=== PATIENT | female | born 1950 | race Caucasian/White ===

== ENCOUNTER 2021-10-24 08:09 | Outpatient (CLI) | payer MEDICARE, OTHER, SELFPAY ==
[2021-10-24 11:22] LABS: Albumin* 3.9 g/dL (3.3-5.0); Chloride* 102 mmol/L (96-114)
[2021-10-24 11:23] LABS: Potassium* 3.8 mmol/L (3.6-5.1); Sodium* 139 mmol/L (135-149)
[2021-10-24 11:25] LABS: Alkaline Phosphatase* 65 U/L (40-150); Aspartate Amino Transferase* 34 U/L (12-35); Bilirubin Total* 0.4 mg/dL (0.1-1.5); Blood Urea Nitrogen* 23 mg/dL (7-30); Carbon Dioxide* 36 mmol/L (20-32); Cholesterol* 151 mg/dL (90-199); Estimated Glomerular Filt Rate 60.61; Glucose* 97 mg/dL (60-115); Triglycerides* 136 mg/dL (40-149)
[2021-10-24 11:26] LABS: Alanine Aminotransferase* 30 U/L (4-35); Calcium* 8.7 mg/dL (8.4-10.6); HDL Cholesterol* 41 mg/dL (>=50); LDL Cholesterol Calculated 83 mg/dL (<100)
== END 2021-10-24 08:10 | disposition home or self-care (01) ==
PROVIDERS: PCP Family Medicine; Visit Provider Family Medicine
DX: E78.5 Hyperlipidemia, unspecified (principal); I10 Essential (primary) hypertension
CPT/HCPCS: 80053; 80061

== ENCOUNTER 2021-12-28 10:15 | Outpatient (CLI) | payer MEDICARE, OTHER, SELFPAY ==
--- NOTE | 2021-12-28 10:15 | CRLHL7_ITS ---
For Patients: As a result of the Century Cures Act, medical imaging exams and procedure reports are released immediately into your electronic medical record. You may view this report before your referring provider. If you have questions, please contact your health care provider. BILATERAL SCREENING MAMMOGRAM WITH COMPUTER-AIDED DETECTION AND TOMOSYNTHESIS TECHNIQUE: CC and MLO views were obtained. These mammographic images have been obtained using full-field digital technique. These mammographic images were interpreted with the benefit of computer-aided detection. Breast Tomosynthesis was used in this interpretation. COMPARISON FILM: 12/07/20, 11/16/19, 07/28/18 FINDINGS: The breasts are almost entirely fatty. IMPRESSION: There is no radiographic evidence for malignancy. ASSESSMENT: BI-RADS Category 1: Negative RECOMMENDATION: Routine screening mammogram in 1 year. A lay language report of this examination will be provided to the patient. Ephraim Villaseñor M.D. Diagnostic Radiologist [email or web address] Transcribed: 12:49 p.m PT/Dictated by: Ephraim Villaseñor MD @ 12/28/2021 11:27:00 AM (Electronically Signed)
--- OUTSIDE RECORDS SUMMARY | 2021-12-28 10:27 | XMS_ITS | Encounter Summary ---
:1950 Author Organization [facility] Address [address] [place] [address] Care Team Providers Name Role Phone Unavailable Primary Care Provider Unavailable Encounter Details Date Type Department Care Team Description 10/26/2019 Orders Only [facility] er No Contact, Pcp [address] [facility] [address] [place], [place] [phone] Social History Tobacco Use Types Packs/Day Years Used Date Smoking Tobacco: Never Sex Assigned at Date Recorded Not on file documented as of this encounter Plan of Treatment Not on filedocumented as of this encounter Visit Diagnoses Not on filedocumented in this encounter
--- OUTSIDE RECORDS SUMMARY | 2021-12-28 10:27 | XMS_ITS | Encounter Summary ---
:1950 Author Organization [facility] Address [address] [place] [address] Care Team Providers Name Role Phone Unavailable Primary Care Provider Unavailable Reason for Visit Reason Comments Med Refill cpap protocol Encounter Details Date Type Department Care Team Description 09/01/2018 [facility] Med Refill ([place] [address] [place] [phone] Social History Tobacco Use Types Packs/Day Years Used Date Smoking Tobacco: Never Sex Assigned at Date Recorded Not on file documented as of this encounter Miscellaneous Notes Telephone Encounter - Mercedes Rodriguez R.N. - 09/01/2018 1:38 PM CDT CPAP prescription renewed via Protocol #[id number] was faxed to the [facility] CPAP store and original will be mailed to the patient's home address. Telephone Encounter - Bipin Pineda - 09/01/2018 9:17 AM CDT Do you have any questions or concerns Do you have any questions or concerns about your PAP therapy that you feel warrants a return visit at this time? no How many hours per night are you using your PAP therapy? _7-8___ HOURS (If less than 5 hours schedule an apt) Are you on oxygen? no (If yes schedule appointment with MD/fellow) Please fax to the [facility] cpap store. documented in this encounter Plan of Treatment Not on filedocumented as of this encounter Visit Diagnoses Diagnosis Obstructive Sleep Apnea Adult - Primary documented in this encounter
--- OUTSIDE RECORDS SUMMARY | 2021-12-28 10:27 | XMS_ITS | Encounter Summary ---
:1950 Author Organization [facility] Address [address] [place] [address] Care Team Providers Name Role Phone Unavailable Primary Care Provider Unavailable Encounter Details Date Type Department Care Team Description 03/07/2012 Historical Ophthalmology RST OPH Thony Burrows O.D. [address] [place], [place] [address] (Wo rk) Social History Tobacco Use Types Packs/Day Years Used Date Smoking Tobacco: Never Assessed Sex Assigned at Date Recorded Not on file documented as of this encounter Progress Notes Thony Burrows O.D. - 03/07/2012 8:05 AM CST Eye General CHIEF COMPLAINT general eye HISTORY OF PRESENT ILLNESS JUDY 1.5 years ago post LASIK Patient denies eye pain, flashing lights, diplopia. The floaters may be a little worse than they hadbeen. She wears OTC for near now as she had LASIK September 2009 in the [facility]. pre diabetic - no meds, April 09 2011 Glucose (P) 103 IMPRESSION / REPORT / PLAN #1 s/p LASIK, both eyes Plan: no distance rx needed #2 Presbyopia Plan: OTC reades satisfactory #3 Dry eye syndrome both eyes. Plan:continue to use artificial tears. #4 Posterior vitreous detachment both eyes. Plan: reviewed signs/symptoms of retinal detachment and to return immediately if occur. #5 Choroidal nevus, left eye Plan: monitor RTC 2 years/prn DIAGNOSIS #1 s/p LASIK, both eyes #2 Presbyopia #3 Dry eye syndrome both eyes. #4 Posterior vitreous detachment both eyes. #5 Choroidal nevus, left eye CDM Reports - EYEGEN Id: [id number] Status: Fnl documented in this encounter Plan of Treatment Not on filedocumented as of this encounter Visit Diagnoses Not on filedocumented in this encounter Additional Health Concerns Infection Onset Date Last Indicated Resolved Time COVID19 Pending 12/05/2019 12/05/2019 12/06/2019 3:14 AM CDT documented as of this encounter
--- OUTSIDE RECORDS SUMMARY | 2021-12-28 10:27 | XMS_ITS | Encounter Summary ---
:1950 Author Organization [facility] Address [address] [place] [address] Care Team Providers Name Role Phone Unavailable Primary Care Provider Unavailable Encounter Details Date Type Department Care Team Description 04/11/2009 - 04/18/2009 Hospital Encounter HX NO MAPPING Social History Tobacco Use Types Packs/Day Years Used Date Smoking Tobacco: Never Assessed Sex Assigned at Date Recorded Not on file documented as of this encounter Plan of Treatment Not on filedocumented as of this encounter Visit Diagnoses Not on filedocumented in this encounter
--- OUTSIDE RECORDS SUMMARY | 2021-12-28 10:27 | XMS_ITS | Encounter Summary ---
:1950 Author Organization [facility] Address [address] [place] [address] Care Team Providers Name Role Phone Unavailable Primary Care Provider Unavailable Encounter Details Date Type Department Care Team Description 11/15/2014 Hospital Encounter HX NO MAPPING Social History Tobacco Use Types Packs/Day Years Used Date Smoking Tobacco: Never Assessed Sex Assigned at Date Recorded Not on file documented as of this encounter Plan of Treatment Not on filedocumented as of this encounter Visit Diagnoses Not on filedocumented in this encounter
--- OUTSIDE RECORDS SUMMARY | 2021-12-28 10:27 | XMS_ITS | Encounter Summary ---
:1950 Author Organization [facility] Address [address] [place] [address] Care Team Providers Name Role Phone Unavailable Primary Care Provider Unavailable Reason for Visit Reason Onset Date Comments Results 08/07/2018 Encounter Details Date Type Department Care Team Description 08/07/2018 Clinical Communication Department of Medical Shamar Simmons, Results Genetics in [place], [place] [address] [facility] [address] [place] [phone] Social History Tobacco Use Types Packs/Day Years Used Date Smoking Tobacco: Never Sex Assigned at Date Recorded Not on file documented as of this encounter Miscellaneous Notes Telephone Encounter - Martine Manzo, R.N. - 08/07/2018 11:23 AM CDT Genomic sequencing test results from the Return of Actionable Variants Empiric (RAVE) Study (IRB# [id number]) Test: DNA sequencing of 68 clinically actionable genes and genotyping of 14 actionable SNPs. As a participant of the RAVE Study, this patient had sequencing of 68 clinically actionable genes and genotyping of 14 actionable SNPs. RESULTS: No pathogenic/likely pathogenic variants found. No actionable SNP genotyping results were found. This patient received these results by mail. No action is needed on your part. The complete genomic test report is available as a PDF in the documents section of the EHR. ADDITIONAL COMMENTS: Please direct questions related to this message to the study genetic counselor Inez Toth [facility] ([email or web address]) or to the Cdl Team Truck Driver, Zach Alfaro MD ([email or web address]) For additional information: Web links: [facility] - [email or web address] documented in this encounter Plan of Treatment Not on filedocumented as of this encounter Visit Diagnoses Not on filedocumented in this encounter
--- OUTSIDE RECORDS SUMMARY | 2021-12-28 10:27 | XMS_ITS | Encounter Summary ---
:1950 Author Organization [facility] Address [address] [place] [address] Care Team Providers Name Role Phone Unavailable Primary Care Provider Unavailable Encounter Details Date Type Department Care Team Description 06/22/2020 Orders Only [facility] PCP TH Sa ruslan Au M.D. [address] [place], [place] [phone] (Wo rk) Social History Tobacco Use Types Packs/Day Years Used Date Smoking Tobacco: Never Sex Assigned at Date Recorded Not on file documented as of this encounter Plan of Treatment Not on filedocumented as of this encounter Visit Diagnoses Not on filedocumented in this encounter
--- OUTSIDE RECORDS SUMMARY | 2021-12-28 10:27 | XMS_ITS | Encounter Summary ---
:1950 Author Organization [facility] Address [address] [place] [address] Care Team Providers Name Role Phone Unavailable Primary Care Provider Unavailable Encounter Details Date Type Department Care Team Description 03/14/2007 Historical Ophthalmology RST OPH Khushi Hatch M.D., Ph.D. Social History Tobacco Use Types Packs/Day Years Used Date Smoking Tobacco: Never Assessed Sex Assigned at Date Recorded Not on file documented as of this encounter Progress Notes Khushi Hatch M.D., Ph.D. - 03/14/2007 10:32 AM CST Eye General CHIEF COMPLAINT general eye exam HISTORY OF PRESENT ILLNESS Patient is here today for a yearly eye exam. Patient notes a slight decrease in near and distance vision in both eyes over the past year. Floaters in both eyes x 2 years, no recent changes to them. Denies flashes of light, ocular pain and diplopia. IMPRESSION / REPORT / PLAN #1 Refractive error (myopic astigmatism, presbyopia). Plan: spectacle prescription (Refraction 1) given. #2 Posterior vitreous detachment both eyes. Plan: monitor periodically, patient warned of signs/symptoms of retinal detachment and to return immediately if occur. #3 Choroidal nevus, left eye Plan: monitor q1-2 years DIAGNOSIS #1 Refractive error (myopic astigmatism, presbyopia). #2 Posterior vitreous detachment both eyes. #3 Choroidal nevus, left eye CDM Reports - EYEGEN Id: [id number] Status: Fnl documented in this encounter Plan of Treatment Not on filedocumented as of this encounter Visit Diagnoses Not on filedocumented in this encounter Additional Health Concerns Infection Onset Date Last Indicated Resolved Time COVID19 Pending 12/05/2019 12/05/2019 12/06/2019 3:14 AM CDT documented as of this encounter
--- OUTSIDE RECORDS SUMMARY | 2021-12-28 10:27 | XMS_ITS | Encounter Summary ---
:1950 Author Organization [facility] Address [address] [place] [address] Care Team Providers Name Role Phone Unavailable Primary Care Provider Unavailable Encounter Details Date Type Department Care Team Description 09/19/2005 Hospital Encounter HX NO MAPPING Social History Tobacco Use Types Packs/Day Years Used Date Smoking Tobacco: Never Assessed Sex Assigned at Date Recorded Not on file documented as of this encounter Plan of Treatment Not on filedocumented as of this encounter Visit Diagnoses Not on filedocumented in this encounter
--- OUTSIDE RECORDS SUMMARY | 2021-12-28 10:27 | XMS_ITS | Clinical Summary ---
:1950 Author Organization [facility] Address [address] [place] [address] Care Team Providers Name Role Phone Unavailable Primary Care Provider Unavailable Source Comments Patient records contain information from all sites at [facility]. For routine questions regarding patient records, call [phone] during business hours, M-F 8:00 AM - 5:00 PM Central Time. Record requests for emergency care only can be directed to [phone] at any time.[facility] Active Problems Problem Noted Date Coronary Artery Disease (Unspecified) 11/10/2014 Hyperlipidemia Mixed 12/18/2002 Hypertension 12/18/2002 Immunizations Name Administration Dates Next Due H1N1 Inj 05/19/2009 HZV (ZOSTAVAX) 06/13/2012 HepB, Unspecified 05/12/1992, 04/22/1990, 03/24/1987, 10/18/1986, 09/15/1986 Influenza (IM) Preservative Free 02/18/2013, 02/20/2012, , 02/08/2010, 01/13/2009, 02/12/2008, 02/25/2007 Influenza, Seasonal, Injectable 03/07/2006, 02/22/2005, 11/0 04/2003, 03/03/2003, 03/03/2002, 01/21/2001, 04/01/2000, 01/31/1999, 02/16/1997, 02/13/1996 OPV 04/22/1963 PCV13 01/18/2016 PPSV23 11/04/2001 Rabies (Rabavert) 12/28/2008, 12/21/2008, 12/17/2008, 12/14/2008 Td (Adult), adsorbed 02/28/2004 Td, (Adult) Unspecified 01/04/1994 Tdap 02/08/2010 influenza vaccine quad 02/11/2015, 02/24/2014 (FLUZONE/FLUARIX) (6 months and older)(PF) Social History Tobacco Use Types Packs/Day Years Used Date Smoking Tobacco: Never Sex Assigned at Date Recorded Not on file Last Filed Vital Signs Vital Sign Reading Time Taken Comments Blood Pressure 149/86 04/29/2017 1:52 PM Vital sign result DIRECTOR OF RETAIL from Clinical No jae. Pulse 77 01/18/2016 1:12 PM CDT Temperature - - Respiratory Rate - - Oxygen Saturation - - Inhaled Oxygen - - Concentration Weight 104 kg (229 lb 8 oz) 04/29/2017 1:52 PM Vital sign result DIRECTOR OF RETAIL from Clinical No jae. Height 174.6 cm (5' 8.74) 04/29/2017 1:52 PM Vital sign result DIRECTOR OF RETAIL from Clinical No jae. Body Mass Index 34.15 04/29/2017 1:52 PM DIRECTOR OF RETAIL Plan of Treatment Health Maintenance Due Date Last Done Comments CT Colonography 1950 Cologuard 1950 FIT 1950 Office Visit for Blood Pressure 1950 Check / Re-check Lipid (Cholesterol) Screening 07/29/2013 07/29/2012, 2012, 01/31/2012, Additional history exists Mammogram 05/19/2016 05/19/2015, 06/03/2014, 04/03/2013, Additional history exists Creatinine Level 01/15/2017 01/16/2016, 11/08/2014, 09/23/2013, Additional history exists Potassium Level 01/15/2017 01/16/2016, 11/08/2014, 09/23/2013, Additional history exists Sodium Level 01/15/2017 01/16/2016, 11/08/2014, 09/23/2013, Additional history exists Pneumococcal vaccine (65+ years) 01/17/2017 01/18/2016, (#3) Fasting Glucose for Diabetes 01/15/2019 01/16/2016, 015, Screening 09/23/2013, Additional history exists Depression Screening (Annual 04/22/2021 PHQ-2) Fall Risk Screen (Annual) 04/22/2021 Influenza Vaccine (#1) 2022 02/06/2021, 01/27/2020, 03/21/2019, Additional history exists Colonoscopy 11/15/2024 11/15/2014, 11/15/2014, 02/28/2005 Colorectal Cancer Screening 11/15/2024 DTaP,Tdap,and Td Vaccines (3 - Td 11/05/2029 11/06/2019, , or Tdap) 02/28/2004, Additional history exists Hepatitis C Screening Completed 07/27/1999 Zoster Vaccines Completed 02/26/2020, 11/06/2019, 06/13/2012 COVID-19 Vaccine Completed 09/07/2021, 02/13/2021, 06/24/2020, Additional history exists Insurance Payer Benefit Plan Subscriber ID Effective Dates Phone Address Type / Group MEDICA [facility] [id number] 2018-[place] [phone] [address] [id number] PPO EMPLOYEE PLAN t 2 [address] [place] [id number]
--- OUTSIDE RECORDS SUMMARY | 2021-12-28 10:27 | XMS_ITS | Encounter Summary ---
:1950 Author Organization [facility] Address [address] [place] [address] Care Team Providers Name Role Phone Unavailable Primary Care Provider Unavailable Encounter Details Date Type Department Care Team Description 05/14/2020 E-Visit [facility] Hope Bruner, RE: Bladder infections at the [facility] on [employer], C.N.P., (fe males only, ages 12 [address] D.N.P. through 75 years) [address] [place] [phone] Social History Tobacco Use Types Packs/Day Years Used Date Smoking Tobacco: Never Sex Assigned at Date Recorded Not on file documented as of this encounter Plan of Treatment Not on filedocumented as of this encounter Visit Diagnoses Diagnosis Dysuria - Primary documented in this encounter
--- OUTSIDE RECORDS SUMMARY | 2021-12-28 10:27 | XMS_ITS | Encounter Summary ---
:1950 Author Organization [facility] Address [address] [place] [address] Care Team Providers Name Role Phone Unavailable Primary Care Provider Unavailable Encounter Details Date Type Department Care Team Description 04/04/2010 Hospital Encounter HX RST [facility] EXERCISE LAB Maria G Magaña, CEP [address] [place] [address] Social History Tobacco Use Types Packs/Day Years Used Date Smoking Tobacco: Never Assessed Sex Assigned at Date Recorded Not on file documented as of this encounter Plan of Treatment Not on filedocumented as of this encounter Procedures Procedure Name Priority Date/Time Associated Diagnosis Comme nts EXERCISE ECG Routine 04/04/2010 7:57 AM CAD LIBRARIAN documented in this encounter Results Exercise ECG (04/04/2010 7:57 AM CAD LIBRARIAN) Specimen (Source) Anatomical Collection Method Collection Time Re ceived Time Location / / Volume Laterality 04/04/2010 7:57 AM CAD LIBRARIAN Jp Ortega M.D. CV STRESS PROCEDURES Performing Organization Address City/State/ZIP Code Phon e Number HX CHANTEL CONVERSION documented in this encounter Visit Diagnoses Not on filedocumented in this encounter
--- OUTSIDE RECORDS SUMMARY | 2021-12-28 10:27 | XMS_ITS | Encounter Summary ---
:1950 Author Organization [facility] Address [address] [place] [address] Care Team Providers Name Role Phone Unavailable Primary Care Provider Unavailable Reason for Visit Reason Comments COVID Nurse Line Encounter Details Date Type Department Care Team Description 12/05/2019 Clinical Communication Division of KARAN Macario Nurse [facility] Livia Reyna APRN, Medicine, Cesar C.N.PLucia, D.N.PLucia [facility], in [address] [place] [phone] [place] [address] [place], [place] (Work) [phone] Social History Tobacco Use Types Packs/Day Years Used Date Smoking Tobacco: Never Sex Assigned at Date Recorded Not on file documented as of this encounter Miscellaneous Notes Telephone Encounter - Livia Macario R.N., C.M.S.R.N. - 12/05/2019 10:32 AM CDT COVID-19 Nurse Line Screening ASSESSMENT COVID 19 Screening Have you had close contact with a person who has a LABORATORY CONFIRMED case of COVID-19?: Yes - Continue screening.(Close contact with daughter 8/10 (positive)) In the last 48 hours have you had any of the following symptoms?: New cough, New headache, New sore throat Do you have any urgent symptoms?: None- Patient meets criteria for testing. PLAN Endpoint recommendation: Screening positive, testing indicated, advised to be swabbed for COVID-19, sent to [facility] located [address] to back of the clinic; cannot access from main parking lot. Testing hours are daily 10 am to 6 pm. When you arrive stay in your car and someone will direct you. Care Points provided: STANDARD PRECAUTIONS FOR ALL PATIENTS: Wash hands often with soap and water for at least 20 seconds, especially after blowing your nose, coughing, sneezing, or having been in a public place. If soap and water aren't available, use a hand sawmill worker that contains at least 60% alcohol. Avoid close contact with anyone who may be exhibiting respiratory symptoms such as coughing and sneezing. Avoid touching your eyes, nose and mouth. Clean and disinfect frequently touched surfaces daily. Cover your mouth and nose with a cloth face cover when around others or in public. The cloth face cover is not a substitute for social distancing. Continue to keep about 6 feet between yourself andothers. Monitor for symptoms. Do not take your temperature within 30 minutes of exercise. If your test or screen is negative and new symptoms develop please contact your provider if it has been greaterthan 72 hours since you were tested. Educational Resource: https://www.cdc.gov/coronavirus/2019-ncov/wlpnrwr-vbhtrxm-trus/index.html RECOMMENDATIONS TESTING CRITERIA IS MET: Stay home except to get medical care. Quarantine for 14 days if exposed to someone with a laboratory confirmed case of COVID-19 exposure regardless of your test results. Avoid public areas and public transportation. Separate yourself from other people and stay in a specific sick room if possible. Wear a cloth face covering, over your nose and mouth if youmust be around other people even at home). Cover your nose and mouth when coughing or sneezing. Contact employer/occupational health department to notify them that they are being tested. Seek emergent care if any of the following occur: 1) Trouble breathing, 2) Bluish lips or face, 3) Persistent pain or pressure in the chest, 4) Newly confused or unable to stay alert and awake. Notify appropriate care provider if any new or worsening symptoms. You may need re-testing if it has been greater than 72 hours after a negative COVID- 19 test result. Education Resources: https://www.cdc.gov/coronavirus/2019-ncov/lb-fds-ote-sick/erjfa-ladb-zoey.html SELF CARE FOR ALL PATIENTS: Take breaks from watching, reading, or listening to news stories. Make time to unwind. Try to do some other activities you enjoy. Connect with others. Be creative in keepingconnected with loved ones, especially those at high risk. Try healthy coping strategies such as meditation, relaxation, exercise, healthy eating habits, and avoid alcohol and drugs. Education: patient/caregiver Patient/caregiver able to teach back Patient agreeable to plan of care: Yes The following references were used: [facility] novel coronavirus (COVID- 19) resources Nursing judgement documented in this encounter Plan of Treatment Not on filedocumented as of this encounter Visit Diagnoses Not on filedocumented in this encounter
--- OUTSIDE RECORDS SUMMARY | 2021-12-28 10:27 | XMS_ITS | Encounter Summary ---
:1950 Author Organization [facility] Address [address] [place] [address] Care Team Providers Name Role Phone Unavailable Primary Care Provider Unavailable Encounter Details Date Type Department Care Team Description 04/26/2005 - Hospital Encounter HX RST SLEEP FLOOR Sj Garcia, 05/03/2005 PRACTICE D.O., M.S. [address] [place] [phone] Social History Tobacco Use Types Packs/Day Years Used Date Smoking Tobacco: Never Assessed Sex Assigned at Date Recorded Not on file documented as of this encounter Plan of Treatment Not on filedocumented as of this encounter Visit Diagnoses Not on filedocumented in this encounter
--- OUTSIDE RECORDS SUMMARY | 2021-12-28 10:27 | XMS_ITS | Encounter Summary ---
:1950 Author Organization [facility] Address [address] [place] [address] Care Team Providers Name Role Phone Unavailable Primary Care Provider Unavailable Encounter Details Date Type Department Care Team Description 03/11/2008 Historical Ophthalmology RST OPH Alex Gutierrez O.D. [address] [place], [place] [phone] (Wo rk) Social History Tobacco Use Types Packs/Day Years Used Date Smoking Tobacco: Never Assessed Sex Assigned at Date Recorded Not on file documented as of this encounter Progress Notes Alex Gutierrez O.D. - 03/11/2008 2:03 PM CST Eye General CHIEF COMPLAINT yearly eye exam HISTORY OF PRESENT ILLNESS This 57 year old female comes in today for a yearly eye exam. Floaters both eyes , no change. Occasional episodes of flashers in the dark both eyes. Vision not assharp as it was a year ago. Both distance and close up have gradually gotten worse over the past year. Patient denies ocular pain. Some dryness, uses artificial tears and this helps. IMPRESSION / REPORT / PLAN #1 Refractive [...] both eyes. #3 Choroidal nevus, left eye CD Reports - EYEGEN Id: [id number] Status: Fnl documented in this encounter Plan of Treatment Not on filedocumented as of this encounter Visit Diagnoses Not on filedocumented in this encounter Additional Health Concerns Infection Onset Date Last Indicated Resolved Time COVID19 Pending 12/05/2019 12/05/2019 12/06/2019 3:14 AM CDT documented as of this encounter
--- OUTSIDE RECORDS SUMMARY | 2021-12-28 10:27 | XMS_ITS | Encounter Summary ---
:1950 Author Organization [facility] Address [address] [place] [address] Care Team Providers Name Role Phone Unavailable Primary Care Provider Unavailable Encounter Details Date Type Department Care Team Description 03/12/2007 Hospital Encounter HX NO MAPPING Social History Tobacco Use Types Packs/Day Years Used Date Smoking Tobacco: Never Assessed Sex Assigned at Date Recorded Not on file documented as of this encounter Plan of Treatment Not on filedocumented as of this encounter Visit Diagnoses Not on filedocumented in this encounter
--- OUTSIDE RECORDS SUMMARY | 2021-12-28 10:27 | XMS_ITS | Encounter Summary ---
:1950 Author Organization [facility] Address [address] [place] [address] Care Team Providers Name Role Phone Unavailable Primary Care Provider Unavailable Encounter Details Date Type Department Care Team Description 02/07/2006 Historical Ophthalmology RST OPH Shay Mcgrath O.D., Ph.D. Social History Tobacco Use Types Packs/Day Years Used Date Smoking Tobacco: Never Assessed Sex Assigned at Date Recorded Not on file documented as of this encounter Progress Notes Shay Mcgrath O.D., Ph.D. - 02/07/2006 12:00 AM CDT Eye General CHIEF COMPLAINT Floaters HISTORY OF PRESENT ILLNESS Vision is good both eyes, distance and near. New floaters in right eye. History of floater in left eye. Patient denies ocular pain. Denies flashes. IMPRESSION / REPORT / PLAN #1 Refractive error (myopic astigmatism, presbyopia). Plan: spectacle prescription (Refraction 2) given. #2 Posterior vitreous detachment both eyes. Plan: monitor periodically, patient warned of signs/symptoms of retinal detachment and to return immediately if occur. DIAGNOSIS #1 Refractive error (myopic astigmatism, presbyopia). #2 Posterior vitreous detachment both eyes. CD Reports - EYEGEN Id: [id number] Status: Fnl documented in this encounter Plan of Treatment Not on filedocumented as of this encounter Visit Diagnoses Not on filedocumented in this encounter Additional Health Concerns Infection Onset Date Last Indicated Resolved Time COVID19 Pending 12/05/2019 12/05/2019 12/06/2019 3:14 AM CDT documented as of this encounter
--- OUTSIDE RECORDS SUMMARY | 2021-12-28 10:27 | XMS_ITS | Clinical Summary ---
:1950 Author Organization [facility] [place] [address] Care Team Providers Name Role Phone Minna Xavier MD Primary Care Provider [phone] Allergies Active Allergy Reactions Severity Noted Date Comments Latex Hives, Edema 03/28/2017 Nitrofurantoin Nausea Only 03/28/2017 Sulfa (Sulfonamide Antibiotics) Hives, Nausea And 10/2016 Vomiting Medications Medication Sig Dispensed Refills Start Date End Date Status atorvastatin (LIPITOR) Take 40 mg by 0 Active 40 mg tablet mouth at bedtime. venlafaxine (EFFEXOR) Take 25 mg by 0 Active 25 mg tablet mouth 3 times daily. furosemide (LASIX) 40 Take 40 mg by 0 Active mg tablet mouth every morning. FLUTICASONE/SALMETEROL Inhale by mouth 2 0 Active (ADVAIR DISKUS INHL) times daily. irbesartan (AVAPRO) 150 Take 150 mg by 0 Active mg tablet mouth once daily. amLODIPine (NORVASC) Take 2.5 mg by 0 Active 2.5 mg tablet mouth once daily. OMEGA-3S/DHA/EPA/FISH Take 1,000 mg by 0 Active OIL (OMEGA 3 ORAL) mouth 3 times daily. UBIDECARENONE/VITAMIN E Take 200 mg by 0 Active MIXED (COQ10 SG 100 mouth. ORAL) CHOLECALCIFEROL, Take 2,000 units 0 Active VITAMIN D3, (VITAMIN D3 by mouth once ORAL) daily. aspirin chewable 81 mg Take 81 mg by 0 Active chewable tablet mouth once daily with a meal. ALBUTEROL SULFATE Inhale 2 Puffs by 0 Active (ALBUTEROL HFA) 90 mouth every 4 mcg/actuation HFAA hours if needed. inhaler Active Problems Problem Noted Date Hypertension 03/26/2017 Hyperlipidemia 03/26/2017 Family History Medical History Relation Name Comments Heart Disease Father CO in his 60's Heart Disease Mother CO in her 60's Relation Name Status Comments Father Mother Social History Tobacco Use Types Packs/Day Years Used Date Never Assessed Sex Assigned at Date Recorded Not on file Obstetrics History Last Filed Vital Signs Vital Sign Reading Time Taken Comments Blood Pressure 136/81 03/28/2017 10:56 AM EQUALIZER OPERATOR Pulse 64 03/28/2017 10:56 AM EQUALIZER OPERATOR Temperature - - Respiratory Rate 16 03/28/2017 10:56 AM EQUALIZER OPERATOR Oxygen Saturation 94% 03/28/2017 10:56 AM EQUALIZER OPERATOR Inhaled Oxygen Concentration - - Weight 101.2 kg (223 lb) 03/28/2017 10:56 AM EQUALIZER OPERATOR Height 180.3 cm (5' 11) 03/28/2017 10:56 AM EQUALIZER OPERATOR Body Mass Index 31.1 03/28/2017 10:56 AM EQUALIZER OPERATOR Plan of Treatment Health Maintenance Due Date Last Done Comments COVID-19 vaccine series (#1) 1950 Tdap 1962 Depression screening for age 12+ 1963 BMI (ht and wt on same day) for age 18+ 1969 Hepatitis C screening for age 18-79 1969 Tetanus booster 1971 Colonoscopy through age 75 1996 Lipids for age 45-75 1996 Mammogram for age 45-75 1996 Zoster (shingles) series for age 50+ (1 of 2) 2001 DEXA/DXA scan for age 65+ 2016 Pneumococcal series for age 65+ (1 - PCV) 2016 Influenza for age 65+ 12/21/2021 Results Not on filefrom Last 3 Months Insurance Payer Benefit Plan / Subscriber ID Effective Dates Phone Addre ss Type Group MEDICARE PART B MEDICARE PART B [id number] 2016-Presen ATTN: CLAIMS - HB USE ONLY HB ONLY t [address] [place] [address] MEDICARE PART A MEDICARE PART A [id number] 2016-[employer] ATTN: CLAIMS - HB USE ONLY HB ONLY t [address] [place] [address] MEDICARE - PB MEDICARE PB [id number] 2016-[employer] ATTN : CLAIMS USE ONLY ONLY t [address] [place] [address] Guarantor Name Account Type Relation to Date of Phone Bill ing Patient Address Roxane Garcia Personal/Family Self 1950 [phone] (Home) [place] [address] Care Teams B2B Sales Professional Relationship Specialty Start Date End Date Minna Xavier MD PCP - General Family Practice 03/13/171999 [place] [address]
--- OUTSIDE RECORDS SUMMARY | 2021-12-28 10:27 | XMS_ITS | Encounter Summary ---
:1950 Author Organization [facility] Address [address] [place] [address] Care Team Providers Name Role Phone Unavailable Primary Care Provider Unavailable Reason for Visit Reason Onset Date Comments Outpatient COVID-19 Testing 12/05/2019 Encounter Details Date Type Department Care Team Description 12/05/2019 External Outreach Department of Jordon Santiago Infect ion Upper Internal Medicine in J[facility] ([place], [place] [address] Dx) [address] [place] [phone] Social History Tobacco Use Types Packs/Day Years Used Date Smoking Tobacco: Never Sex Assigned at Date Recorded Not on file documented as of this encounter Progress Notes Leanne Lr, RLuciaN. - 12/05/2019 10:43 AM CDT Encounter created for the drive-through COVID-19 testing. documented in this encounter Plan of Treatment Not on filedocumented as of this encounter Procedures Procedure Name Priority Date/Time Associated Diagnosis Comme nts SARS CORONAVIRUS-2 Routine 12/05/2019 11:38 AM Infection Upper Results for this RNA, V CDT Respiratory procedure are i n the results section. documented in this encounter Results SARS Coronavirus-2 RNA, V Symptomatic (12/05/2019 11:38 AM CDT) [facility] Method Time Signature SARS-CoV-2 Swab, 12/06/2019 [facility] Specimen Nasopharynx 1:41 AM CDT Source SARS CoV-2 Undetected Undetected 12/06/2019 MKTO RNA, TMA 1:41 AM CDT Comment: SARS-CoV-2 RNA absent. This result does not rule out COVID-19 in the patient, as the sensitivity of the test depends o n the timing of the specimen collection and the quality of the specim en. Result should be correlated with patient's history and clinical presentat ion. ----ADDITIONAL INFORMATION---- This test is performed using the Aptima SARS-CoV-2 assay ([employer] which has received Emergency Use Authori zation (EUA) by the U.S. Food and Drug Administration. Fact sheets for this Emergency Use Autho rization (EUA) assay can be found at the following links: For Healthcare Providers: https://www.fd a.gov/media/075398/download For Patients: https://www.fda.gov/media/ 139577/download Specimen Anatomical Collection Method Collection Time Receive d Time (Source) Location / / Volume Laterality Varies 12/05/2019 11:38 12/05/2019 5:00 (Nasopharynx) AM CDT PM CDT Jordon Santiago D.O. LAB MICROBIOLOGY - GENERAL O ZAN Performing Organization Address City/State/[facility] Code Phon e Number [facility]- [address] [place] [phone] [place] [address] [place] [address] System in [address] documented in this encounter Visit Diagnoses Diagnosis Infection Upper Respiratory - Primary documented in this encounter Additional Health Concerns Infection Onset Date Last Indicated Resolved Time COVID19 Pending 12/05/2019 12/05/2019 12/06/2019 3:14 AM CDT documented as of this encounter
--- OUTSIDE RECORDS SUMMARY | 2021-12-28 10:27 | XMS_ITS | Encounter Summary ---
:1950 Author Organization [facility] Address [address] [place] [address] Care Team Providers Name Role Phone Unavailable Primary Care Provider Unavailable Encounter Details Date Type Department Care Team Description 02/25/2013 Historical Ophthalmology RST OPH Thony Burrows O.D. [address] [place], [place] [phone] (Wo rk) Social History Tobacco Use Types Packs/Day Years Used Date Smoking Tobacco: Never Assessed Sex Assigned at Date Recorded Not on file documented as of this encounter Progress Notes Thony Burrows O.D. - 02/25/2013 8:00 AM CST Eye General CHIEF COMPLAINT Annual eye exam-dry, LASIK HISTORY OF PRESENT ILLNESS Dryness; both eyes (right > left); x 6 months; on and off; symptoms occur primarily when reading,occur primarily at the computer. Patient reports no change in vision. Patient denies pain, flashes or diplopia. Floaters alone; both eyes (right > left); x many years; constantly. pre diabetic - no meds-A1c 106 06/11/2012 Rx before LASIK -from Rt -2.25-0.25x 100 Lt -2.50 sphere add +2.50 IMPRESSION / REPORT / PLAN #1 s/p LASIK, both eyes Plan: no distance rx needed #2 Presbyopia Plan: OTC reades satisfactory #3 Dry eye syndrome both eyes. Plan:continue to use artificial tears. #4 Choroidal nevus, left eye Plan: monitor RTC 2 years/prn DIAGNOSIS #1 s/p LASIK, both eyes #2 Presbyopia #3 Dry eye syndrome both eyes. #4 Choroidal nevus, left eye [facility] Id: [id number] Status: Fnl documented in this encounter Plan of Treatment Not on filedocumented as of this encounter Visit Diagnoses Not on filedocumented in this encounter Additional Health Concerns Infection Onset Date Last Indicated Resolved Time COVID19 Pending 12/05/2019 12/05/2019 12/06/2019 3:14 AM CDT documented as of this encounter
--- OUTSIDE RECORDS SUMMARY | 2021-12-28 10:27 | XMS_ITS | Encounter Summary ---
:1950 Author Organization [facility] Address [address] [place] [address] Care Team Providers Name Role Phone Unavailable Primary Care Provider Unavailable Encounter Details Date Type Department Care Team Description 08/09/2017 Orders Only [facility] Quita Connell, in [place], [facility] renee [facility] [address] [facility] [address] [place] [address] [place], [place] [phone] (Wo rk) Social History Tobacco Use Types Packs/Day Years Used Date Smoking Tobacco: Never Sex Assigned at Date Recorded Not on file documented as of this encounter Plan of Treatment Not on filedocumented as of this encounter Visit Diagnoses Not on filedocumented in this encounter
--- OUTSIDE RECORDS SUMMARY | 2021-12-28 10:27 | XMS_ITS | Encounter Summary ---
:1950 Author Organization [facility] Address [address] [place] [address] Care Team Providers Name Role Phone Unavailable Primary Care Provider Unavailable Encounter Details Date Type Department Care Team Description 06/23/2009 Hospital Encounter HX NO MAPPING Social History Tobacco Use Types Packs/Day Years Used Date Smoking Tobacco: Never Assessed Sex Assigned at Date Recorded Not on file documented as of this encounter Plan of Treatment Not on filedocumented as of this encounter Visit Diagnoses Not on filedocumented in this encounter
--- OUTSIDE RECORDS SUMMARY | 2021-12-28 10:28 | XMS_ITS | Encounter Summary ---
:1950 Author Organization [facility] Address [address] [place] [address] Care Team Providers Name Role Phone Unavailable Primary Care Provider Unavailable Encounter Details Date Type Department Care Team Description 02/26/2005 Hospital Encounter HX NO MAPPING Social History Tobacco Use Types Packs/Day Years Used Date Smoking Tobacco: Never Assessed Sex Assigned at Date Recorded Not on file documented as of this encounter Plan of Treatment Not on filedocumented as of this encounter Visit Diagnoses Not on filedocumented in this encounter
--- OUTSIDE RECORDS SUMMARY | 2021-12-28 10:28 | XMS_ITS | Encounter Summary ---
:1950 Author Organization [facility] Address [address] [place] [address] Care Team Providers Name Role Phone Unavailable Primary Care Provider Unavailable Encounter Details Date Type Department Care Team Description 01/04/2003 Hospital Encounter HX NO MAPPING Social History Tobacco Use Types Packs/Day Years Used Date Smoking Tobacco: Never Assessed Sex Assigned at Date Recorded Not on file documented as of this encounter Plan of Treatment Not on filedocumented as of this encounter Procedures Procedure Name Priority Date/Time Associated Diagnosis Comme nts CT ABDOMEN PELVIS Routine 01/04/2003 6:56 PM Resu lts for this WITHOUT IV CONTRAST CDT procedur e are in the results section. documented in this encounter Results CT Abdomen Pelvis without IV Contrast (01/04/2003 6:56 PM CDT) Anatomical Region Laterality Modality Abdomen, Pelvis N/A Computed Tomography Specimen (Source) Anatomical Collection Method Collection Time Re ceived Time Location / / Volume Laterality 01/04/2003 6:56 PM CDT Narrative 01/05/2003 7:06 AM CDT 04-Jan-2003 18:56:00 ??Exam: CT ABDOMEN wo & PELVIS wo Indications: Fever, left flank pain, pos itive UA. ORIGINAL REPORT - 04-Jan-2003 19:04:00 CT of the abdomen and pelvis without IV contrast per the renal stone protocol demonstrates mild inflammatory stranding in the left perinephric space. ??Tiny 2-3mm focus of calcification in the distal le ft ureter approximately 1cm proximal to the left UVJ (image 77) may represent partial volume averaging with an adjacent pelvic phlebolith but a ureteral calculus cannot be excluded. ??No pyelocaliectasi s or ureterectasis. ??Trace amount of fr ee fluid in the right adnexa. ??Small bulla in the right midlung base medially (image 9). ??A few strands of atelectasis or fibrosis in the left lung base. ??The abdomen, pelvis, and visualized lung bas es are otherwise negative on this noncontrast examination. Ind: 810.519 ?? Dia.[id number] ?? Electronically signed by: ?? Josefina Walden MD. [id number] 04-Jan-2003 19:04 I have reviewed the films/images and agr ee with the above interpretation. Electronically signed by: ?? Eric. Sohan Penny M.D. 05-Jan-2003 07:06 Procedure Note Prosper Penny M.D. - 07/25/2017Formatt ing of this note might be different from the original. 04-Jan-2003 18:56:00 Exam: CT ABDOMEN wo & PELVIS wo Indications: Fever, left flank pain, pos itive UA. ORIGINAL REPORT - 04-Jan-2003 19:04:00 CT of the abdomen and pelvis without IV contrast per the renal stone protocol demonstrates mild inflammatory stranding in the left perinephric space. Tiny 2- 3mm focus of calcification in the distal left ureter approximately 1cm proximal to the left U VJ (image 77) may represent partial volume averaging with an adjacent pelvic phlebolith but a ureteral calculus cannot be excluded. No pyelocaliectasis or ureterectasis. Trace amount of free fluid in the right adnexa . Small bulla in the right midlung base medially (image 9). A few strands of atelectasis or fibrosis in the left lung base. The abdomen, pelvis, and visualized lung bases are otherwise negative on this noncontrast e xamination. Ind: [phone] [id number] Electronically signed by: Josefina Walden MD. [id number] 04-Jan-2003 19:04 I have reviewed the films/images and agr ee with the above interpretation. Electronically signed by: Eric. Sohan Penny M.D. 05-Jan-2003 07:[address] PROCEDURES documented in this encounter Visit Diagnoses Not on filedocumented in this encounter
--- OUTSIDE RECORDS SUMMARY | 2021-12-28 10:28 | XMS_ITS | Encounter Summary ---
:1950 Author Organization [facility] Address [address] [place] [address] Care Team Providers Name Role Phone Unavailable Primary Care Provider Unavailable Encounter Details Date Type Department Care Team Description 03/23/2005 Historical Ophthalmology RST OPH Elvia Beavers O.D. [address] [place], [place] [phone] (Wo rk) Social History Tobacco Use Types Packs/Day Years Used Date Smoking Tobacco: Never Assessed Sex Assigned at Date Recorded Not on file documented as of this encounter Progress Notes Elvia Steinberg O.D. - 03/23/2005 12:00 AM CST Eye General CHIEF COMPLAINT general eye exam HISTORY OF PRESENT ILLNESS Pt. notes that flashing has resolved. Pt. notes that she still has the floaters. Pt. not sure if thebifocal is right in her glasses. She would like computer glasses. IMPRESSION / REPORT / PLAN #1 Posterior Vitreous Detachment, left eye Plan: monitor #2 Refractive error (myopic astigmatism, presbyopia). Plan: spectacle prescription (Refraction 1) given, spectacle prescription (Refraction 2) given for computer. DIAGNOSIS #1 Posterior Vitreous Detachment, left eye #2 Refractive error (myopic astigmatism, presbyopia). [facility] Reports - EYEGEN Id: [id number] Status: Fnl documented in this encounter Plan of Treatment Not on filedocumented as of this encounter Visit Diagnoses Not on filedocumented in this encounter Additional Health Concerns Infection Onset Date Last Indicated Resolved Time COVID19 Pending 12/05/2019 12/05/2019 12/06/2019 3:14 AM CDT documented as of this encounter
--- OUTSIDE RECORDS SUMMARY | 2021-12-28 10:28 | XMS_ITS | Encounter Summary ---
:1950 Author Organization [facility] Address [address] [place] [address] Care Team Providers Name Role Phone Unavailable Primary Care Provider Unavailable Encounter Details Date Type Department Care Team Description 10/03/2004 Historical Ophthalmology RST OPH Ruchi Singh M.D. Social History Tobacco Use Types Packs/Day Years Used Date Smoking Tobacco: Never Assessed Sex Assigned at Date Recorded Not on file documented as of this encounter Progress Notes Ruchi Singh M.D. - 10/03/2004 12:00 AM CDT Eye General CHIEF COMPLAINT return, posterior viteous detachment HISTORY OF PRESENT ILLNESS Patient states that she does have floaters in the left eye. Size of the floaters have decreased, butdoes occasionally still get bigger size floaters. Does have some cloudy vision at times, no other complaints concerning the vision. IMPRESSION / REPORT / PLAN #1 Posterior Vitreous Detachment, left eye RD precautios given. Follow in 6 months or sooner prn. DIAGNOSIS #1 Posterior Vitreous Detachment, left eye CDM Reports - EYEGEN Id: [id number] Status: Fnl documented in this encounter Plan of Treatment Not on filedocumented as of this encounter Visit Diagnoses Not on filedocumented in this encounter Additional Health Concerns Infection Onset Date Last Indicated Resolved Time COVID19 Pending 12/05/2019 12/05/2019 12/06/2019 3:14 AM CDT documented as of this encounter
--- OUTSIDE RECORDS SUMMARY | 2021-12-28 10:28 | XMS_ITS | Encounter Summary ---
:1950 Author Organization [facility] Address [address] [place] [address] Care Team Providers Name Role Phone Unavailable Primary Care Provider Unavailable Encounter Details Date Type Department Care Team Description 02/28/2005 Hospital Encounter HX NO MAPPING Social History Tobacco Use Types Packs/Day Years Used Date Smoking Tobacco: Never Assessed Sex Assigned at Date Recorded Not on file documented as of this encounter Plan of Treatment Not on filedocumented as of this encounter Visit Diagnoses Not on filedocumented in this encounter
--- OUTSIDE RECORDS SUMMARY | 2021-12-28 10:28 | XMS_ITS | Encounter Summary ---
:1950 Author Organization [facility] Address [address] [place] [address] Care Team Providers Name Role Phone Unavailable Primary Care Provider Unavailable Encounter Details Date Type Department Care Team Description 08/22/2004 Historical Ophthalmology RST OPH Ruchi Singh M.D. Social History Tobacco Use Types Packs/Day Years Used Date Smoking Tobacco: Never Assessed Sex Assigned at Date Recorded Not on file documented as of this encounter Progress Notes Ruchi Singh M.D. - 08/22/2004 12:00 AM CDT Eye General CHIEF COMPLAINT Left eye flashes of light, new blob and floaters HISTORY OF PRESENT ILLNESS Today at 330pm. Flashing with large floater in the left eye. No change in vision that she noted. No curtain, shadow. IMPRESSION / REPORT / PLAN #1 Posterior Vitreous Detachment, left eye RD precautios given. Follow in one month or sooner prn. DIAGNOSIS #1 Posterior Vitreous Detachment, left eye CDM Reports - EYEGEN Id: [id number] Status: Fnl documented in this encounter Plan of Treatment Not on filedocumented as of this encounter Visit Diagnoses Not on filedocumented in this encounter Additional Health Concerns Infection Onset Date Last Indicated Resolved Time COVID19 Pending 12/05/2019 12/05/2019 12/06/2019 3:14 AM CDT documented as of this encounter
== END 2021-12-28 10:16 | disposition home or self-care (01) ==
LOC: MAMMO 10:16
PROVIDERS: PCP Family Medicine; Visit Provider Family Medicine
DX: Z12.31 Encounter for screening mammogram for malignant neoplasm of breast (principal)
CPT/HCPCS: 77063; 77067